=== PATIENT | female | born 1945 | race Caucasian/White ===

== ENCOUNTER → 2018-01-30 | Outpatient (CLI) | payer OTHER ==
[~2018-01-30] MED LIST: AMITRIPTYLINE H25 M2 PO; ASPIRIN325 PO; ASTELIN30 ML NS; CALCIUM OR; CELEXA 20 MG TA20 M1 PO; FISHOIL; FLAX SEED OIL1000 MG PO; FLEXERIL PO; LOTREL 5-10 MG1 EACH PO; LOTREL 5-20 MG1 EACH PO; LUTEIN20 MG OR; MULTIVITAMINS OR; NASONEX17 GM NS; NEURONTIN600 MG PO; NORCO 5-325 TA1 EACH PO; PEPCID AC20 M1 PO; POTASSIUM GLUCONATE OR; POTASSIUM20; REGLAN 10 MG TA10 MG PO; XYZAL5 MG PO; ZOFRAN ODT4 MG PO; [UNRECOGNIZED DRUG - OTHER] PO
== END ==
LOC: RAD 00:13
DX: Z12.31 Encounter for screening mammogram for malignant neoplasm of breast (principal); Z13.820 Encounter for screening for osteoporosis; Z78.0 Asymptomatic menopausal state

== ENCOUNTER → 2018-05-23 | Outpatient (CLI) | payer OTHER | LOC: ULTRA 11:54 | DX: M25.462 Effusion, left knee (principal); M79.89 Other specified soft tissue disorders; I10 Essential (primary) hypertension; M81.0 Age-related osteoporosis without current pathological fracture ==

== ENCOUNTER → 2019-01-21 | Outpatient (CLI) | payer OTHER ==
[~2019-01-21] VITALS: Ht 162.6 cm; Wt 97.5 kg
[~2019-01-21] MED LIST changes: +AMLODIPINE-OLM1 EAC1 PO; +CENTRUM SILVER1 EAC4 PO; +CITRACAL + D E1 EACH PO; +FISH OIL 1,2001 EAC4 PO; +LIPITOR10 MG PO; +OXYBUTYNIN 5 MG5 M2 PO; +PRESERVISION A1 EAC2 PO; +VITAMIN D35000 UNIT PO; +ZYRTEC10 M5 PO
--- NOTE | ~2019-01-21 | P ---
[facility] [place] [address] PROCEDURE REPORT Name: ISA CONTE Room #: REG [facility]#: [id number] Admission: 01/21/19 ������������������ Attend Phys: Edgar Mann Discharge: ������������������ Date of : 43 Report #: [id number] THIS REPORT FOR: //name// CC: Edgar Cox MD DATE OF SERVICE: 01/21/2019 PROCEDURE PERFORMED: Colonoscopy. HISTORY OF PRESENT ILLNESS: The patient is a 73-year-old female who presents today for routine screening colonoscopy. Last colonoscopy was approximately 10 years ago, negative. No family history of colon cancer. The patient denies any symptoms. DESCRIPTION OF PROCEDURE: The risks and benefits of the procedure were explained to the patient, those risks including but not limited to bleeding, perforation, the risk of sedation. She understood these risks and gave informed consent. Sedation was given using propofol per anesthesia. Next, a digital rectal exam was initially performed, which was normal. Next, using a standard Olympus colonoscope, the scope was placed in the patient's anus and advanced under direct vision to the cecum. The overall prep was excellent. The cecum and ileocecal valve were normal in appearance. Ascending, transverse, and descending colon were normal. A few diverticula were noted in the sigmoid colon, no evidence of inflammation, otherwise normal. The rectal mucosa was normal. On retroflexion, no abnormalities were noted. The scope was then withdrawn and the procedure terminated. The patient tolerated the procedure well. IMPRESSION: 1. Sigmoid diverticulosis. 2. Otherwise, normal colonoscopy. RECOMMENDATIONS: Consider repeat colonoscopy in 10 years. Thank you for allowing me to participate in her care. ��������������������������������������������� ���������������������������������������� By: ��������������������������������������������� 1056 2042 Edgar Fall MD /nt
== END | disposition home or self-care (01) ==
LOC: GI 08:45
DX: Z12.11 Encounter for screening for malignant neoplasm of colon (principal); K57.30 Diverticulosis of large intestine without perforation or abscess without bleeding; M79.7 Fibromyalgia; G62.9 Polyneuropathy, unspecified; I10 Essential (primary) hypertension; E78.00 Pure hypercholesterolemia, unspecified; Z90.49 Acquired absence of other specified parts of digestive tract; Z86.73 Personal history of transient ischemic attack (TIA), and cerebral infarction without residual deficits; Z98.890 Other specified postprocedural states; Z79.899 Other long term (current) drug therapy; Z79.82 Long term (current) use of aspirin
CPT/HCPCS: 62110; 62900

== ENCOUNTER → 2019-07-13 | Outpatient (CLI) | payer OTHER | LOC: BC 08:41 | DX: Z12.31 Encounter for screening mammogram for malignant neoplasm of breast (principal) ==

== ENCOUNTER 2019-12-13 10:30 | Emergency (ER) | payer OTHER ==
[~2019-12-13] VITALS: Ht 165.1 cm; Wt 90.7 kg
--- NOTE | ~2019-12-13 | EKG ---
[facility] [place] [address] ELECTROCARDIOGRAM REPORT Name: ISA CONTE Room #: REG [facility]#: [id number] Admission: 12/13/19 Attend Phys: Discharge: Date of : 43 Report #: [id number] THIS REPORT FOR: cc: Tony Cox Steven F. DO Epiphany, Epiphany MD ~ THIS REPORT FOR: //name// [facility] ED Test Date: 2019-12-13 Test Time: 11:47:41 Pat Name: ISA CONTE Department: Room: Gender: F County Supervisor: DANIE : 1945 Requested By: Angelica Monteiro Order Number: [id number] MD: Measurements Intervals [place] Rate: 56 P: 18 [place]: 207 QRS: -36 QRSD: 109 T: 3 QT: 463 QTc: 447 Interpretive Statements Sinus rhythm Left axis deviation Abnormal R-wave progression, late transition Borderline T abnormalities, anterior leads Compared to ECG 01/13/2016 03:23:05 Left-axis deviation now present Sinus bradycardia no longer present T-wave abnormality still present [email or web address] By: 1147 1147 Epiphany Epiphany, [place] /[facility]
[2019-12-13 11:06] LABS: ABSOLUTE NEUTROPHILS 5.2 thou/uL (1.4-8.2); BASOPHILS 0.8 % (0.0-2.0); EOSINOPHILS 0.8 % (0.0-3.0); HEMOGLOBIN 15.3 gm/dL (12.0-15.0); LYMPHOCYTES 19.3 % (24.0-44.0); MCH 28.8 pg (26.0-34.0); MCHC 33.2 g/dL (28.0-37.0); MCV 86.5 fL (80.0-100.0); MONOCYTES 8.5 % (1.0-8.0); PLATELET COUNT 232 thou/uL (150-400); POLYS 70.6 % (36.0-66.0); RBC 5.32 mil/uL (4.20-5.00); RDW 14.4 % (10.5-14.5); WBC 7.3 thou/uL (4.0-11.0)
[2019-12-13 11:12] LABS: CALCIUM 9.2 mg/dL (8.5-10.1); CREATININE 1.1 mg/dL (0.6-1.0); POTASSIUM 3.5 mmol/L (3.5-5.1)
[2019-12-13 11:18] LABS: ALBUMIN 3.7 g/dL (3.4-5.0); TOTAL BILIRUBIN 0.5 mg/dL (<0.1-1.0); TOTAL PROTEIN 8.1 g/dL (6.4-8.2)
[2019-12-13 11:59] LABS: URINE BILIRUBIN NEGATIVE (Negative); URINE BLOOD TRACE (Negative); URINE CLARITY CLEAR; URINE COLOR YELLOW; URINE GLUCOSE-RANDOM* NEGATIVE (Negative); URINE KETONES NEGATIVE (Negative); URINE LEUKOCYTES-REFLEX NEGATIVE (Negative); URINE NITRITE-REFLEX NEGATIVE (Negative); URINE PROTEIN (DIPSTICK) NEGATIVE (Negative); URINE UROBILINOGEN 0.2 E.U./dl (0.2-1.0)
[2019-12-13 12:34] VITALS: BP 109/76
[2019-12-13] MEDS ORDERED: REGLAN 10 MG TA10 MG PO (12:40)
[2019-12-13] MEDS ORDERED: NORCO 5-325 TA1 EAC1 PO (12:40)
== END 2019-12-13 12:43 | disposition home or self-care (01) ==
LOC: ER 10:30
PROVIDERS: Emergency Medicine; Nurse Practitioner Family
DX: R19.7 Diarrhea, unspecified (principal); R11.2 Nausea with vomiting, unspecified; E86.0 Dehydration; I10 Essential (primary) hypertension; E78.00 Pure hypercholesterolemia, unspecified; M79.7 Fibromyalgia; G47.30 Sleep apnea, unspecified; Z90.49 Acquired absence of other specified parts of digestive tract; Z86.73 Personal history of transient ischemic attack (TIA), and cerebral infarction without residual deficits

== ENCOUNTER 2020-09-09 13:10 | Inpatient (IN) | payer OTHER ==
[~2020-09-09] VITALS: Ht 165.1 cm; Wt 93.0 kg
--- NOTE | ~2020-09-09 | EKG ---
[facility] [place] [address] ELECTROCARDIOGRAM REPORT Name: ISA CONTE Room #: 349-I ADM IN M.R.#: [id number] Admission: 09/09/20 Attend Phys: Henry Mackay MD Discharge: Date of : 43 Report #: [id number] THIS REPORT FOR: cc: Tony Cox Steven F. DO Epiphany, Epiphany MD ~ THIS REPORT FOR: //name// [facility] Test Date: 2020-09-10 Test Time: 12:43:06 Pat Name: ISA CONTE Department: Room: 349 Gender: F Mother Repairer: Lisa JUNG : 1945 Requested By: Margie Glynn Order Number: [id number] MD: Measurements Intervals [employer] Rate: 64 P: 13 TN: 212 QRS: -46 QRSD: 100 T: 36 QT: 391 QTc: 404 Interpretive Statements Sinus rhythm Borderline prolonged TN interval LAD, consider left anterior fascicular block Compared to ECG 09/09/2020 13:28:58 Left-axis deviation no longer present [email or web address] By: 1243 1243 Epiphany Epiphany, [place] /[facility]
--- NOTE | ~2020-09-09 | EKG ---
[facility] [place] [address] ELECTROCARDIOGRAM REPORT Name: ISA CONTE Room #: PRE [facility]..#: [id number] Admission: Attend Phys: Discharge: Date of : 43 Report #: [id number] THIS REPORT FOR: cc: Tony Cox Steven F. DO Epiphany, Epiphany MD ~ THIS REPORT FOR: //name// [facility] ED Test Date: 2020-09-09 Test Time: 13:28:58 Pat Name: ISA COTNE Department: Room: Gender: F Window Shade Cutter: RAFAEL TOLBERT : 1945 Requested By: Amaury Hernandez Order Number: [id number] MD: Measurements Intervals [place] Rate: 70 P: -11 [place]: 207 QRS: -41 QRSD: 99 T: 22 QT: 387 QTc: 418 Interpretive Statements Sinus rhythm Left axis deviation Abnormal R-wave progression, late transition Compared to ECG 12/13/2019 11:47:41 T-wave abnormality no longer present [email or web address] By: 1328 1328 Epiphany EpiphanyMD /EPI
[~2020-09-09 13:10] MED LIST changes: +NORCO 5-325 TA1 EAC1 PO
[2020-09-09 13:13] VITALS: BP 145/90
[2020-09-09 14:20] LABS: ABSOLUTE NEUTROPHILS 4.4 thou/uL (1.4-8.2); BASOPHILS 0.9 % (0.0-2.0); EOSINOPHILS 5.9 % (0.0-3.0); HEMATOCRIT 40.8 % (37.0-47.0); LYMPHOCYTES 24.1 % (24.0-44.0); MCH 29.5 pg (26.0-34.0); MCHC 34.2 g/dL (28.0-37.0); MCV 86.2 fL (80.0-100.0); MONOCYTES 7.5 % (1.0-8.0); PLATELET COUNT 205 thou/uL (150-400); POLYS 61.6 % (36.0-66.0); RBC 4.73 mil/uL (4.20-5.00); RDW 14.1 % (10.5-14.5); WBC 7.1 thou/uL (4.0-11.0)
[2020-09-09 14:23] LABS: ANION GAP 10 mmol/L (7-16); BUN 16 mg/dL (7-18); CALCIUM 8.9 mg/dL (8.5-10.1); CHLORIDE 103 mmol/L (98-107); CO2 28 mmol/L (21-32); CREATININE 0.9 mg/dL (0.6-1.0); GLUCOSE 98 mg/dL (74-106); POTASSIUM 3.6 mmol/L (3.5-5.1); SODIUM 141 mmol/L (136-145)
[2020-09-09 14:33] LABS: ALBUMIN 3.7 g/dL (3.4-5.0); SGOT 17 U/L (15-37); SGPT 15 U/L (30-65); TOTAL BILIRUBIN 0.3 mg/dL (0.2-1.0); TOTAL PROTEIN 7.4 g/dL (6.4-8.2); TROPONIN-I <0.06 ng/mL (<0.06)
--- NOTE | 2020-09-09 14:44 | EKG ---
[facility] [place] [address] ELECTROCARDIOGRAM REPORT Name: ISA CONTE Room #: REG [facility].#: [id number] Admission: 09/09/20 Attend Phys: Discharge: Date of : 43 Report #: [id number] THIS REPORT FOR: cc: Tony Cox Steven F. DO Santiago, Patrick MD [facility] ~ THIS REPORT FOR: //name// [facility] ED Test Date: 2020-09-09 Test Time: 13:28:58 Pat Name: ISA CONTE Department: Room: Gender: F Health Social Work Professor: RAFAEL TOLBERT : 1945 Requested By: Amaury Hernandez Order Number: [id number] MD: Juve Hernandez Measurements Intervals [place] Rate: 70 P: -11 RI: 207 QRS: -41 QRSD: 99 T: 22 QT: 387 QTc: 418 Interpretive Statements Sinus rhythm Left axis deviation Abnormal R-wave progression, late transition Compared to ECG 12/13/2019 11:47:41 T-wave abnormality no longer present Electronically Signed On 09-09-2020 14:43:50 MANAGED SERVICES SALES CONSULTANT by Juve Hernandez [email or web address] <ELECTRONICALLY SIGNED> By: Juve Hernandez MD, FACC 09/09/20 1443 1328 1328 Juve Hernandez MD, [facility] /EPI
[2020-09-09 22:32] LABS: CHOLESTEROL 143 mg/dL (<200); HDL CHOLESTEROL 57 mg/dL (>40); LDL CHOLESTEROL 74 mg/dL (<100); TC:HDL 2.5 Ratio (Not establshd); TRIGLYCERIDE 64 mg/dL (<150); VLDL 13 mg/dL (<40)
[2020-09-09 22:33] LABS: SERUM ASSESSMENT Clear
[2020-09-10 05:48] LABS: CALCIUM 8.3 mg/dL (8.5-10.1); CREATININE 0.7 mg/dL (0.6-1.0); POTASSIUM 3.3 mmol/L (3.5-5.1)
[2020-09-10 07:34] VITALS: BP 154/85
[2020-09-10 09:35] VITALS: BP 140/61
[2020-09-10 11:23] VITALS: BP 120/55
--- NOTE | 2020-09-10 12:12 | NUR ---
ASSUMED PATIENT CARE. PATIENT ARRIVED TO UNIT AT APPROXIMATELY 1130 FROM ER. ARRIVED TO FLOOR VIA HOPSITAL BED. AWAKE ALERT ORIENTED, NO DISTRESS NOTED UPON ARRIVAL TO FLOOR. PATIENT EDUCATED ON USE OF CALL LIGHT AND ORIENTED TO ROOM. SPOKE WITH DR. MCCRACKEN UPON ARIVAL TO FLOOR. DIET ORDERED
[2020-09-10 15:07] VITALS: BP 133/69
[2020-09-10 19:53] VITALS: BP 136/65
[2020-09-11 00:07] VITALS: BP 136/74
[2020-09-11 05:49] LABS: HEMATOCRIT 41.8 % (37.0-47.0); HEMOGLOBIN 13.7 gm/dL (12.0-15.0); MCH 28.9 pg (26.0-34.0); MCHC 32.7 g/dL (28.0-37.0); MCV 88.3 fL (80.0-100.0); RBC 4.73 mil/uL (4.20-5.00); RDW 14.3 % (10.5-14.5); WBC 4.7 thou/uL (4.0-11.0)
[2020-09-11 06:09] VITALS: BP 134/62
[2020-09-11 06:15] LABS: CALCIUM 8.4 mg/dL (8.5-10.1); POTASSIUM 3.3 mmol/L (3.5-5.1)
--- NOTE | 2020-09-11 06:17 | NUR ---
ASSUMED CARE AT 1900. PT REPORTS MILD PAIN IN SHOULDERS/UPPER ARMS BUT DECLINED NEEDING PAIN MEDS. DENIED CHEST PAIN OR SOB OVERNIGHT. SR WITH OCCASIONAL PAC, HR 70-80 OVERNIGHT. NO OTHER CONCERNS, WILL CONTINUE TO MONTIOR.
[2020-09-11 07:07] LABS: GLYCOHEMOGLOBIN (HGB A1C) 5.5 % (4.8-5.6)
--- NOTE | 2020-09-11 07:45 | HC ---
[facility] [place] [address] CONSULTATION Name: ISA CONTE Room #: 349-I ADM IN M.R.#: [id number] Admission: 09/09/20 Attend Phys: Henry Mackay MD Discharge: Date of : 43 Report #: [id number] THIS REPORT FOR: cc: Tony Cox,Nayan De La Cruz MD ~ DATE OF SERVICE: 09/10/2020 CARDIOLOGY CONSULTATION INDICATION: Chest pain. HISTORY OF PRESENT ILLNESS: This is a pleasant 74-year-old female with a history of hypertension, hypercholesterolemia, fibromyalgia, peripheral neuropathy and TIA, presenting with chest pain. She initially presented with complaints of intermittent fatigue and upper torso discomfort. She was experiencing aches in her arms, upper back and neck area. Her granddaughter was tested positive for COVID last week and she was concerned. Upon further questioning, she also reported having a discomfort in the left sternal area, reproducible with palpation. It was not relieved with belching, upper torso movement or coughing. There is no history of fever, nausea or diarrhea. Her COVID test is positive. PAST MEDICAL HISTORY: Hypertension, hyperlipidemia, negative for diabetes, negative for tobacco use. ALLERGIES: None. MEDICATIONS AT HOME: Include amlodipine and olmesartan, Neurontin, amitriptyline, atorvastatin 10 mg daily, fish oil. SOCIAL HISTORY: Negative for tobacco use. FAMILY HISTORY: Negative for premature CAD. REVIEW OF SYSTEMS: A full 10-point review of systems performed. Only the pertinent positives and negatives are described in the HPI. PHYSICAL EXAMINATION: VITAL SIGNS: Blood pressure is 150/80, heart rate is 70 beats per minute. GENERAL APPEARANCE: This is a pleasant female, in no apparent distress. HEENT: Normocephalic, atraumatic. Oral mucosa moist. NECK: Supple. LUNGS: Clear to auscultation. [facility] [address] [place] [address] CONSULTATION Name: ISA CONTE Room #: 349-I [facility] IN [facility]#: [id number] Admission: 09/09/20 Attend Phys: Henry Mackay MD Discharge: Date of : 43 Report #: [id number] CARDIAC: Regular rate and rhythm, S1, S2 positive. ABDOMEN: Soft, nontender. EXTREMITIES: No edema, no cyanosis. LABORATORY VALUES: Troponin is negative x 2. Sodium is 143, creatinine is 0.7. LDL is 74, hemoglobin is 14.0 ECG reveals sinus rhythm, nonspecific findings. Chest x-ray is unremarkable. ASSESSMENT AND PLAN: 1. Chest pain syndrome/atypical. 2. Serial troponin levels are negative. Her symptoms are reproducible with palpation. The etiology is more likely musculoskeletal. Recommend pursuing an ischemic evaluation as an outpatient. 3. COVID-19 infection. 4. Respiratory status is stable. Chest x-ray is unremarkable. Continue further treatment. 5. Hypertension, stable blood pressure, continue on the same medical regimen. 6. Hypercholesterolemia, continue Lipitor. <ELECTRONICALLY SIGNED> By: Nayan Sullivan MD 09/11/20 0745 0832 0854 Nayan Sullivan MD /nt
[2020-09-11 08:21] VITALS: BP 127/77
[2020-09-11 11:20] VITALS: BP 111/73
--- NOTE | 2020-09-11 14:36 | NUR ---
ASSUMED PATIENT CARE THIS AM AT APPROXIMATELY 0700. PATIENT IS AWAKE ALERT ORIENTED, NO ACUTE DISTRESS NOTED. ASSESSMENTS AND MEDICATIONS CHARTED. PATIENT DENIES ANY ACUTE CHEST PAIN THIS SHIFT. ONLY SORENESS TO BILATERAL SHOULDERS, DENIES ANY NEED FOR PAIN MEDICATIONS AT THIS TIME. PATIENT POTASSIUM LEVEL LOW THIS AM AND REPLACEMENT PROTOCOL STARTED. PATIENT DISCUSSED PLAN OF CARE DISCUSSED WITH MD AND ALL QUESTIONS ANSWERED THIS SHIFT. PT AFEBRILE, O2 SAT STABLE ON ROOM AIR AND NO SOB NOTED WITH EXERTION.
[2020-09-11 15:01] VITALS: BP 120/62
[2020-09-11 20:19] VITALS: BP 122/58
[2020-09-12 04:21] VITALS: BP 109/57
[2020-09-12 05:11] LABS: HEMOGLOBIN 13.8 gm/dL (12.0-15.0); MCH 29.5 pg (26.0-34.0); MCHC 33.6 g/dL (28.0-37.0); MCV 87.8 fL (80.0-100.0); RBC 4.67 mil/uL (4.20-5.00); RDW 14.5 % (10.5-14.5); WBC 4.8 thou/uL (4.0-11.0)
[2020-09-12 05:26] LABS: CALCIUM 8.1 mg/dL (8.5-10.1); CREATININE 0.9 mg/dL (0.6-1.0); POTASSIUM 3.8 mmol/L (3.5-5.1)
--- NOTE | 2020-09-12 06:21 | NUR ---
ASSUMED CARE AT 1900. PT DENIED CHEST PAIN OR SOB OVERNIGHT. NO FEVERS. HAS BEEN SR ON TELE WITH HR IN 70'S. OCCASIONAL DRY COUGH, NO SPUTUM. LIKELY DC HOME TODAY, NO OTHER CONCERNS, WILL CONTINUE TO MONITOR.
[2020-09-12 08:21] VITALS: BP 117/76
[2020-09-12] MEDS ORDERED: VITAMINC500 PO (09:50)
[2020-09-12] MEDS ORDERED: VITAMIN B-1100 M2 PO (09:50)
[2020-09-12 10:38] VITALS: BP 117/76
--- NOTE | 2020-09-12 10:42 | NUR ---
ASSUMED PATIENT CARE THIS AM AT APPROXMIATELY 0700. PATIENT IS AWAKE ALERT ORIENTED, UP IN BEDSIDE CHAIR. NO COMPLAINTS THIS AM, STATES SHE SLEPT WELL OVERNIGHT, PATIENT DENIES ANY CHEST PAIN OR OTHER CONCERNS THIS AM. PATIENT VSS. MEDICATIONS AND ASSESSMENTS CHARTED. SPOKE WITH DR. MCCRACKEN THIS AM AND DISCHARGE ORDERS GIVEN. PATIENT EDUCATED ON DISCHAGE INSTRUCTIONS AND FOLLOW UP APPOINTMENTS WELL NEW MEDICATIONS ORDERED. PATIENT DENIES ANY FURTHE QUESTIONS AT THIS TIME. COOKER SYRUP AND IV SALINE LOCK REMOVED.
--- NOTE | 2020-09-14 15:03 | HC ---
[facility] [place] [address] CONSULTATION Name: ISA CONTE Room #: 349-I [facility] IN M.R.#: [id number] Admission: 09/09/20 Attend Phys: Yusuf Earl MD Discharge: 09/12/20 Date of : 43 Report #: [id number] THIS REPORT FOR: cc: Tony Cox,Ruddy Vera MD ~ DATE OF SERVICE: 09/10/2020 INFECTIOUS DISEASE CONSULTATION ATTENDING PHYSICIAN: Dr. Mackay. REASON FOR EVALUATION: COVID-19 positive. HISTORY OF PRESENT ILLNESS: Chart reviewed, the patient examined. This is a 74-year-old woman with very extensive medical history, with complaints of chest-related discomfort, also extended to her upper extremities as well, felt a pressure type. She was concerned about the possibility of being COVID positive since she was exposed to her granddaughter who tested positive a later. She was fatigued. It is not clear if she had any significant fevers. She did have some mild dyspnea and a nonproductive cough. She was evaluated. Laboratory was otherwise unrevealing. D-dimer was slightly elevated at 1.33. CT of the chest showed no evidence of pulmonary emboli with no focal pulmonary infiltrates, some mild bibasilar atelectasis. COVID antigen was negative with coronavirus PCR was positive. She is currently on ambient air satting in the upper 90s. She feels improved from the chest standpoint. She has not been started on any antimicrobials. ALLERGIES: None known. CURRENT MEDICATIONS: Include ascorbic acid, olmesartan, amlodipine, cholecalciferol, loratadine, aspirin, gabapentin, oxybutynin, amitriptyline, famotidine, atorvastatin, p.r.n. analgesics and antiemetics. PAST MEDICAL HISTORY: History of sleep apnea, bilateral lower extremity peripheral neuropathy, fibromyalgia, elevated cholesterol, hypertension, macular degeneration, previous cholecystectomy. SOCIAL HISTORY: Nonsmoker, no ethanol, no illicit drug use. FAMILY HISTORY: Noncontributory. REVIEW OF SYSTEMS: As above. [facility] [address] [place] [address] CONSULTATION Name: ISA CNOTE Room #: 349-I [facility] IN [facility]#: [id number] Admission: 09/09/20 Attend Phys: Yusuf Earl MD Discharge: 09/12/20 Date of : 43 Report #: [id number] PHYSICAL EXAMINATION: GENERAL: She is pleasant, alert, cooperative. She is mildly anxious, appears to be reasonably well nourished. VITAL SIGNS: Temperature 98.5, pulse 67, respirations 20, blood pressure 111/73. SKIN: Warm, dry, no rashes. HEENT: Normocephalic. Extraocular muscles intact. NECK: Supple. LUNGS: Slightly diminished, otherwise clear breath sounds. HEART: Regular. I do not appreciate a murmur. ABDOMEN: Soft, nontender, nondistended. EXTREMITIES: No cyanosis. GENITOURINARY AND RECTAL: Deferred. LABORATORY DATA: Hemoglobin A1c was 5.5. Electrolytes: Sodium 139, potassium 3.3, chloride 103, bicarbonate 26, anion gap of 10, BUN and creatinine 16 and 1.0, estimated GFR of 54. CBC: White count 4.7, H and H 13.7 and 41.8, platelets of 172. As noted above, the coronavirus PCR was positive and antigen was negative. ASSESSMENT: Coronavirus, COVID-19 positive. At this point, I do not think she is exhibiting anything that would favor active signs of progressive infection at this point, certainly monitor over the next 24-48 hours to see how she does. Clinically, she has improved. We would not initiate any therapy such as remdesivir nor any antibacterials unless there is a change in her overall status with suggestion of progressive disease. <ELECTRONICALLY SIGNED> By: Ruddy Domingo MD 09/14/20 1503 1130 1216 Ruddy Domingo MD /nt
== END 2020-09-12 13:20 | disposition home or self-care (01) | DRG 178 ==
LOC: ER 13:10 → 3W 18:10 → EROBS 18:10 → 3W 09-10 11:30
PROVIDERS: Emergency Medicine; Nurse Practitioner Family; ADMIT Hospitalist; ATTEND Hospitalist
DX: U07.1 COVID-19 (principal); D68.9 Coagulation defect, unspecified; M79.7 Fibromyalgia; E78.00 Pure hypercholesterolemia, unspecified; I10 Essential (primary) hypertension; G62.9 Polyneuropathy, unspecified; G47.33 Obstructive sleep apnea (adult) (pediatric); R07.9 Chest pain, unspecified; Z90.49 Acquired absence of other specified parts of digestive tract; Z86.73 Personal history of transient ischemic attack (TIA), and cerebral infarction without residual deficits; Z79.82 Long term (current) use of aspirin; Z79.899 Other long term (current) drug therapy; M94.0 Chondrocostal junction syndrome [Tietze]
CPT/HCPCS: 10879

== ENCOUNTER → 2020-10-04 | Outpatient (CLI) | payer OTHER ==
[~2020-10-04] MED LIST changes: +VITAMIN B-1100 M2 PO; +VITAMINC500 PO
== END ==
LOC: SJCVCIMAG 09:38
PROVIDERS: ATTEND Internal Medicine Cardiovascular Disease
DX: R94.31 Abnormal electrocardiogram [ECG] [EKG] (principal); I10 Essential (primary) hypertension; E78.00 Pure hypercholesterolemia, unspecified; G47.33 Obstructive sleep apnea (adult) (pediatric); Z79.82 Long term (current) use of aspirin; Z79.899 Other long term (current) drug therapy

== ENCOUNTER → 2020-10-10 | Outpatient (CLI) | payer OTHER | LOC: CAT 11:45 | PROVIDERS: ATTEND Neuromusculoskeletal Medicine & OMM | DX: Z13.6 Encounter for screening for cardiovascular disorders (principal); I25.10 Atherosclerotic heart disease of native coronary artery without angina pectoris; E78.00 Pure hypercholesterolemia, unspecified ==

== ENCOUNTER → 2021-04-11 | Outpatient (CLI) | payer OTHER | LOC: SJCVC 10:42 | PROVIDERS: ATTEND Internal Medicine Cardiovascular Disease | DX: R94.31 Abnormal electrocardiogram [ECG] [EKG] (principal); R07.9 Chest pain, unspecified; R06.00 Dyspnea, unspecified; I10 Essential (primary) hypertension; E78.00 Pure hypercholesterolemia, unspecified; Z86.16 Personal history of COVID-19; G47.30 Sleep apnea, unspecified; E78.5 Hyperlipidemia, unspecified; Z79.82 Long term (current) use of aspirin; Z79.899 Other long term (current) drug therapy; Z86.73 Personal history of transient ischemic attack (TIA), and cerebral infarction without residual deficits ==

== ENCOUNTER → 2021-05-03 | Outpatient (CLI) | payer OTHER | LOC: MRI 10:26 | PROVIDERS: ATTEND Neuromusculoskeletal Medicine & OMM | DX: M47.815 Spondylosis without myelopathy or radiculopathy, thoracolumbar region (principal); M47.816 Spondylosis without myelopathy or radiculopathy, lumbar region; M48.061 Spinal stenosis, lumbar region without neurogenic claudication; M51.27 Other intervertebral disc displacement, lumbosacral region; M48.07 Spinal stenosis, lumbosacral region; M41.86 Other forms of scoliosis, lumbar region ==

== ENCOUNTER → 2021-06-19 | Outpatient (CLI) | payer OTHER ==
[2021-06-19 11:00] LABS: CREATININE 0.8 mg/dL (0.6-1.0)
== END ==
LOC: CAT 10:20
PROVIDERS: ATTEND Specialist
DX: M47.26 Other spondylosis with radiculopathy, lumbar region (principal); M47.27 Other spondylosis with radiculopathy, lumbosacral region; M48.07 Spinal stenosis, lumbosacral region; M48.061 Spinal stenosis, lumbar region without neurogenic claudication; M41.86 Other forms of scoliosis, lumbar region; E88.2 Lipomatosis, not elsewhere classified

== ENCOUNTER 2021-07-02 18:20 | Observation (INO) | payer OTHER ==
[~2021-07-02] VITALS: Ht 165.1 cm; Wt 94.3 kg
[2021-07-02 18:39] VITALS: BP 148/77
[2021-07-02 19:02] LABS: HEMATOCRIT 40.1 % (37.0-47.0); HEMOGLOBIN 13.5 gm/dL (12.0-15.0); LYMPHOCYTES 28.6 % (24.0-44.0); MCH 29.5 pg (26.0-34.0); MCHC 33.8 g/dL (28.0-37.0); MCV 87.3 fL (80.0-100.0); PLATELET COUNT 192 thou/uL (150-400); POLYS 50.4 % (36.0-66.0); RBC 4.59 mil/uL (4.20-5.00); RDW 14.6 % (10.5-14.5); WBC 7.9 thou/uL (4.0-11.0)
[2021-07-02 19:20] LABS: CREATININE 0.9 mg/dL (0.6-1.0); POTASSIUM 3.7 mmol/L (3.5-5.1)
[2021-07-02 19:30] LABS: ALBUMIN 3.5 g/dL (3.4-5.0); TOTAL BILIRUBIN 0.3 mg/dL (0.2-1.0); TOTAL PROTEIN 7.1 g/dL (6.4-8.2)
[2021-07-03 00:06] VITALS: BP 140/69
[2021-07-03] MEDS ORDERED: OXYBUTYNIN ER 55 M1 PO (01:18)
[2021-07-03 04:26] VITALS: BP 110/48
[2021-07-03 05:16] LABS: CALCIUM 8.2 mg/dL (8.5-10.1); CREATININE 0.8 mg/dL (0.6-1.0)
[2021-07-03 05:27] LABS: CHOLESTEROL 138 mg/dL (<200); HDL CHOLESTEROL 47 mg/dL (>40); LDL CHOLESTEROL 67 mg/dL (<100); TC:HDL 2.9 Ratio (Not establshd); TRIGLYCERIDE 120 mg/dL (<150); VLDL 24 mg/dL (<40)
[2021-07-03 05:28] LABS: SERUM ASSESSMENT Clear
[2021-07-03 07:00] VITALS: BP 136/78
--- NOTE | 2021-07-03 07:16 | EKG ---
[address] [address] ELECTROCARDIOGRAM REPORT Name: ISA CONTE Room #: 200-I [facility].R.#: [id number] Admission: 07/02/21 Attend Phys: Jethro Sahu MD Discharge: Date of : 43 Report #: [id number] [facility] ED Test Date: 2021-07-02 Test Time: 21:06:08 Pat Name: ISA CONTE Department: Room: 200 Gender: F Mechanic Senior: mparrobb : 1945 Requested By: Elyssa Aldana Order Number: [id number] MD: Juve Hernandez Measurements Intervals [place] Rate: 67 P: 17 UT: 214 QRS: -43 QRSD: 101 T: 29 QT: 412 QTc: 435 Interpretive Statements Sinus rhythm Borderline prolonged UT interval Incomplete RBBB Compared to ECG 09/10/2020 12:43:06 Incomplete right bundle-branch block now present Right bundle-branch block now present Electronically Signed On 07-03-2021 7:16:39 CDT by Juve Hernandez [email or web address] <ELECTRONICALLY SIGNED> By: Juve Hernandez MD, [facility] 07/03/21 0716 05 05 Juve Hernandez MD, [facility] /EPI
--- NOTE | 2021-07-03 08:43 | EKG ---
[place] [address] [facility] [place] [address] ELECTROCARDIOGRAM REPORT Name: ISA CONTE Room #: 200-I [facility].#: [id number] Admission: 07/02/21 Attend Phys: Asher Nixon Discharge: Date of : 43 Report #: [id number] [facility] Test Date: 2021-07-03 Test Time: 07:30:09 Pat Name: ISA CONTE Department: Room: 200 I Gender: F Compliance Spec: CARLOS : 1945 Requested By: Margie Glynn Order Number: [id number] MD: Js Metcalf Measurements Intervals [place] Rate: 62 P: 9 DC: 224 QRS: -44 QRSD: 101 T: 18 QT: 429 QTc: 436 Interpretive Statements Sinus rhythm Prolonged DC interval Left axis deviation Compared to ECG 07/02/2021 21:06:08 No significant change was found Electronically Signed On 07-03-2021 8:43:34 CDT by Js Metcalf [email or web address] <ELECTRONICALLY SIGNED> By: Js Metcalf MD, [facility] 07/03/2143 9 9 Js Metcalf MD, [facility]ACC /EPI
[2021-07-03 11:36] VITALS: BP 123/65
--- NOTE | 2021-07-03 12:07 | NUR ---
ASSESSMENT CHARTED - FADIA DIET AND FLUIDS. UP AD ELLEN IN REOOM STEADY ON FEET. NO CO'S OF PAIN OR NAUSEA. PT HOME THIS AM - INSTRUCTION RE HOME MEDS/ FOLLOW AND CARE GIVEN TO PATIENT TO HAVE STRESS STESS DONE OUTPATIENT. LEFT UNIT VIA WHEELCHAIR. HOME VIA PVT VEHICLE WITH . NO CO'S AT TIME OF D/C.
--- NOTE | 2021-07-03 12:59 | NUR ---
Met with patient who is discharged today with orders completed. SP with patient reviewed role of casemgt. Patient reports she lives at home with spouse and son. She reports independent with adls and self care. She has not rec HH or had prior to admission. patient plans home with no needs from casemgt. plan dc home independently.
--- NOTE | 2021-07-04 07:22 | EKG ---
[address] [place] [address] ELECTROCARDIOGRAM REPORT Name: ELAISA RODRIGUES Room #: 200-I [facility]#: [id number] Admission: 07/02/21 Attend Phys: Asher Nixon Discharge: 07/03/21 Date of : 43 Report #: [id number] [facility] ED Test Date: 2021-07-02 Test Time: 18:26:55 Pat Name: ISA CONTE Department: Room: 200 I Gender: F Program Director: THOR : 1945 Requested By: Elyssa Aldana Order Number: [id number] MD: Juve Hernandez Measurements Intervals [place] Rate: 70 P: 2 SC: 199 QRS: -37 QRSD: 96 T: 5 QT: 398 QTc: 430 Interpretive Statements Sinus rhythm Left axis deviation Abnormal R-wave progression, late transition Borderline T wave abnormalities Compared to ECG 09/10/2020 12:43:06 Left-axis deviation now present T-wave abnormality now present Electronically Signed On 07-04-2021 7:22:37 CDT by Juve Hernandez [email or web address] <ELECTRONICALLY SIGNED> By: Juve Hernandez MD, FAC 07/04/21 0722 182 25 Juve Hernandez MD, [facility] /EPI
== END 2021-07-03 12:05 | disposition home or self-care (01) ==
LOC: ER 18:20 → EROBS 21:18 → 2N 21:18 → EROBS 21:18 → 2N 23:59
PROVIDERS: Nurse Practitioner Family; Physician Assistant; ADMIT Hospitalist; ATTEND Hospitalist
DX: R07.2 Precordial pain (principal); Z20.822 Contact with and (suspected) exposure to COVID-19; I10 Essential (primary) hypertension; I25.2 Old myocardial infarction; G47.33 Obstructive sleep apnea (adult) (pediatric); R42 Dizziness and giddiness; M79.7 Fibromyalgia; E78.5 Hyperlipidemia, unspecified; G62.9 Polyneuropathy, unspecified; Z86.73 Personal history of transient ischemic attack (TIA), and cerebral infarction without residual deficits; Z82.49 Family history of ischemic heart disease and other diseases of the circulatory system

== ENCOUNTER → 2021-07-06 | Outpatient (CLI) | payer OTHER ==
[~2021-07-06] MED LIST changes: +OXYBUTYNIN ER 55 M1 PO
[2021-07-06 10:22] LABS: APTT 31.8 Seconds (24.5-32.8); PROTIME 10.9 Seconds (10.5-12.1)
== END | disposition home or self-care (01) ==
LOC: RAD 08:22
PROVIDERS: ATTEND Specialist
DX: M51.16 Intervertebral disc disorders with radiculopathy, lumbar region (principal); M48.061 Spinal stenosis, lumbar region without neurogenic claudication; M41.86 Other forms of scoliosis, lumbar region; I10 Essential (primary) hypertension; E78.5 Hyperlipidemia, unspecified; M79.7 Fibromyalgia; G62.9 Polyneuropathy, unspecified; Z98.890 Other specified postprocedural states; Z79.899 Other long term (current) drug therapy; Z79.82 Long term (current) use of aspirin; Z86.73 Personal history of transient ischemic attack (TIA), and cerebral infarction without residual deficits; Z86.16 Personal history of COVID-19

== ENCOUNTER → 2021-07-13 | Outpatient (CLI) | payer OTHER | LOC: SJCVCIMAG 07:14 | PROVIDERS: ATTEND Internal Medicine Cardiovascular Disease | DX: R07.9 Chest pain, unspecified (principal); I10 Essential (primary) hypertension; R60.9 Edema, unspecified; E78.5 Hyperlipidemia, unspecified; Z72.89 Other problems related to lifestyle; Z79.82 Long term (current) use of aspirin; Z79.899 Other long term (current) drug therapy ==

== ENCOUNTER → 2021-07-13 | Outpatient (CLI) | payer OTHER | LOC: BC 08:29 | PROVIDERS: ATTEND Neuromusculoskeletal Medicine & OMM | DX: Z12.31 Encounter for screening mammogram for malignant neoplasm of breast (principal) ==

== ENCOUNTER → 2021-08-29 | Outpatient (CLI) | payer OTHER ==
[~2021-08-29] VITALS: Ht 162.6 cm; Wt 90.7 kg
[~2021-08-29] MED LIST changes: +ALEVE220 M1 PO; +BIOTIN5 M1 PO; +LOTREL 10-20 M1 EACH PO; +ZINC50 M2 PO
--- NOTE | ~2021-08-29 | HPC ---
[facility] [place] [address] PAIN MANAGEMENT CONSULTATION Name: ISA CONTE Room #: REG MISTY Lopez.#: [id number] Admission: 08/29/21 Attend Phys: Sen Bond DO Discharge: Date of : 43 Report #: [id number] THIS REPORT FOR: cc: Tony Cox,Tony Gallardo,Sen Flores DO ~ cc: Tony Florian MD DATE OF SERVICE: 08/29/2021 CHIEF COMPLAINT: Low back pain, bilateral lower extremity pain with paresthesias, left greater than right. HISTORY OF PRESENT ILLNESS: As you know, the patient is a very pleasant 75-year-old female who has had a longstanding history of intermittent axial back pain began years ago. She had an acute exacerbation in 04/2020 without inciting injury or trauma. The pain began to radiate from the back down the legs, left greater than right. She trialled conservative treatment including [id number] medications, rest, and relaxation without much benefit. She discussed her case further with her primary care physician, Dr. Cox who referred the patient on to see Dr. Darnell Caceres with the Center for relief of pain. The patient underwent CT myelogram and a flexion, extension films, which showed changes that might require surgical options, but the patient was advised to trial conservative treatment initially. She had not undergone epidural injections or pain management treatments prior to that. She was referred to our clinic to discuss treatment options from an interventional standpoint. The patient reports today her pain is intermittent. Described the pain is more of a shooting, sharp, stabbing, numbness and tingling when describing symptoms. Places current pain score 4/10. Daily average anywhere from 9-12/10. Worst pain has been is 12/10. She has been referred to our service to discuss interventional treatment options to address lumbar radiculopathy. PAST MEDICAL HISTORY: 1. Hypertension. 2. Cholesterolemia. 3. Neuropathy. 4. Fibromyalgia. 5. Sleep apnea. 6. Seasonal allergies. SOCIAL HISTORY: The patient is retired, retired 10 years plus. She is not receiving workmen's compensation nor is she trying to obtain disability benefits. She is not in litigation in regards to pain. She denies tobacco, alcohol or IV illicit drug use. She is accompanied by her present in room today. [address] [address] PAIN MANAGEMENT CONSULTATION Name: ISA CONTE Room #: REG CLI Renetta#: [id number] Admission: 08/29/21 Attend Phys: Sen Bond DO Discharge: Date of : 43 Report #: [id number] PAST SURGICAL HISTORY: Tonsillectomy, ankle surgery and cholecystectomy. REVIEW OF SYSTEMS: Positive for fatigue and weakness, wearing corrective eyewear, shortness of breath with walking, lying flat, nocturia, numbness and tingling sensations, history of transient ischemic attacks with no residual deficits, heat and cold intolerance, bleeding and bruising tendencies. All other review of systems negative per 12-point review of systems other than those listed in history of present illness. Pain impact score 43/70, severe interference of daily activities secondary to pain. ALLERGIES: No reported drug allergies. CURRENT MEDICATIONS: Zinc chelate 50 mg once a day, biotin 5 mg orally, naproxen 220 mg q. 12 hours, amlodipine/benazepril 10/20 once a day, oxybutynin 5 mg once a day, ascorbic acid 500 mg once a day, vitamin B1 100 mg per day, cholecalciferol 5000 units per day, calcium carbonate 1 tab per day, cetirizine 10 mg per day, omega-3 fish oil 1200 mg once a day, atorvastatin 10 mg per day, amitriptyline 25 mg p.o. at bedtime, aspirin 325 mg per day, gabapentin 600 mg 2 tabs 3 times a day, 1200 mg 3 times a day. IMAGING: CT lumbar spine obtained 07/06/2021 shows disk bulge at L2-L3, L3-L4, L4-L5 with thickening and attenuation of the exiting L5 nerve roots bilaterally at the L4-L5 level. PQRS: The patient has known arthritic changes of the lumbar spine, bilateral hands, and bilateral knees and hips. No rheumatoid arthritis, placing pain intensity anywhere from 4-10/10. She is not a fall risk, has not had a fall in last 3 months. She is not on blood thinners, but is treated for hypertension. She is not on chronic opioids, has a low opioid addiction potential based on assessment tool. Pain impact is 43/70, severe interference of daily activities secondary to pain. PHYSICAL EXAMINATION: VITAL SIGNS: Blood pressure 137/69, pulse is 73, respiratory rate 18 and unlabored. The patient is 96% on room air. Height 5 feet 4 inches tall, weight 200 pounds, BMI calculated 34.3. GENERAL: Well-developed, well-nourished, well-hydrated exogenously obese 75-year-old female appearing stated age. She is placing current pain score 4-10/10. HEENT: Normocephalic, atraumatic. Pupils equal, round and responsive to light. She is wearing a mask in compliance with COVID-19 regulations. LUNGS: Clear, no wheeze, rhonchi or rales. CARDIOVASCULAR: Regular. No appreciable gallop, no rub. [facility] [address] [place] [address] PAIN MANAGEMENT CONSULTATION Name: ISA CONTE Room #: REG MISTY Christianson.#: [id number] Admission: 08/29/21 Attend Phys: Sen Bond DO Discharge: Date of : 43 Report #: [id number] ABDOMEN: Soft, obese, normoactive bowel sounds. EXTREMITIES: Show no clubbing, no cyanosis and no edema. MUSCULOSKELETAL: Lower extremity strength is symmetrical 5/5 except for some hand upward bound director on the right, which appears to be reduced to about 4-1/2 over 5. No focal deficits. No atrophy in the upper extremities or lower extremities. Seated straight leg raising is negative. Supine straight leg raising is positive on the right. Maddy's test is negative. Modified Gaenslen's positive for axial low back pain. Gait appears normal. Deep tendon reflexes are 2+/4 in the bilateral upper extremities, 0/4 bilateral lower extremities, but symmetrical. Provocation testing of the lumbar spine including extension, rotation, lateral flexion all intensify axial back pain. ASSESSMENT: 1. Symptomatic lumbar radiculopathy. 2. Displacement of lumbar intervertebral disk with radiculopathy. 3. Neural foraminal stenosis of lumbar spine. 4. Lumbar degeneration. 5. Chronic intractable pain. PLAN: 1. Based on today's physical exam and the history, the patient provides, the distribution of symptoms, the patient is experiencing pain upon and the descriptors the patient uses in regards to pain, it would appear the patient is suffering from lumbar radiculopathy. The patient was referred specifically to our services by her neurosurgeon, Dr. Darnell Caceres to trial lumbar epidural injections under fluoroscopic guidance in hopes of improving pain before surgical options would be entertained. The patient has not trialed any conservative treatment options from a pain management standpoint including epidural injections for which the patient was referred to our clinic. She is on gabapentin taking 1200 mg 3 times a day, but is noticing no significant benefit. She has been evaluated from a surgical standpoint and advised that she is a surgical candidate assuming that conservative treatment options are ineffective. The patient and I discussed today the findings of her recent CT examination and how they correlate to her current symptoms. After that discussion, we chatted for a period of time in regards to the treatment options we have available to address her ongoing symptoms. Following was discussed with the patient today. We discussed physical therapy, stretching exercise, core strengthening and weight loss as a treatment option. We discussed medication management, adding to her current neuropathic treatment with either Cymbalta or possibly escalating the patient's amitriptyline for better analgesic effect by utilizing the norepinephrine reuptake pathway. We discussed lumbar epidural injections under fluoroscopic guidance for which the patient was referred to our clinic. We also discussed spinal cord stimulator therapy and ultimately surgical decompression. After reviewing the risks and benefits of all proposed treatment options, the patient chose to begin with a lumbar epidural injection under fluoroscopic [address] [address] PAIN MANAGEMENT CONSULTATION Name: ISA CONTE Room #: REG CLI Renetta#: [id number] Admission: 08/29/21 Attend Phys: Sen Bond DO Discharge: Date of : 43 Report #: [id number] guidance. 2. The patient was advised risks and benefits of a lumbar epidural injection. These risks include but are not necessarily limited to bleeding, bruising, infection, worsening pain, no relief of pain, and also risk of temporary or permanent muscle weakness, temporary or permanent nerve damage, possible paralysis, post-dural puncture headache and . The patient states understood and wished to proceed. 3. No medication changes made at today's visit. The patient will continue current medical therapy as prior prescribed. 4. The patient will return to our clinic in 1 month. At that time, review the efficacy of today's epidural injection and determine if next in the series of epidural injections would be recommended. 5. We wish to thank Dr. Darnell Caceres for the referral of this patient to our clinic. We will keep you apprised of response to treatment as we address lumbar radiculopathy. Again, we wish to thank you for the opportunity to see the patient in consultation. PROCEDURE NOTE DESCRIPTION OF PROCEDURE: L5-S1 right paramedian epidural steroid injection under fluoroscopic guidance. This is the first procedure of the first series that the patient is undergoing. After obtaining written consent, the patient was taken back to the fluoroscopy suite, placed in a prone position with pillow under the abdomen to decrease lumbar lordosis. The skin overlying the lumbosacral area was then prepped and draped in aseptic fashion. The L5-S1 vertebral interspace was then identified by AP fluoroscopy. The skin and subcutaneous tissue overlying the target site of injection was anesthetized with 3 mL 1% lidocaine. A 20 gauge 3-1/2 inch Tuohy needle was then advanced under fluoroscopic guidance towards the epidural space using a right paramedian approach. The epidural space was identified using loss of resistance to air technique. After negative aspiration for heme or cerebrospinal fluid, a total of 1 mL of Omnipaque was injected. A lumbar epidurogram was confirmed using both AP and lateral fluoroscopy. After negative aspiration for heme or cerebrospinal fluid, 5 mL of a solution containing 2 mL 40 mg per mL, 80 mg total triamcinolone along with 3 mL of lidocaine 1% was injected in increments. Contrast spread was noted in the posterior epidural space. The needle was then retracted approximately half way and needle tract flushed with 1 mL of 1% lidocaine. Needle was then removed. There were no apparent sensory or motor deficits in the lower extremity following the procedure. A sterile bandage was placed over the injection site. The heart rate, pulse, oximetry and blood pressure were continuously monitored after the procedure. There were no apparent complications. The patient [address] [address] PAIN MANAGEMENT CONSULTATION Name: ISA CONTE Room #: REG [facility] Renetta#: [id number] Admission: 08/29/21 Attend Phys: Sen Bond DO Discharge: Date of : 43 Report #: [id number] tolerated the procedure well and was carefully escorted to the recovery room in stable condition. There were no apparent complications. After meeting discharge criteria, the patient was then discharged home. By: [id number] Sen Bond DO /nt
[2021-08-29 10:44] VITALS: BP 137/69
--- NOTE | 2021-08-29 11:16 | NUR ---
Pain Clinic Assessment: 1. History of Osteoarthritis: LOW BACK HANDS JOINTS History of Rheumatoid Arthritis: DENIES 2. Height: 5 ft. 4 in. 162.6 cm. Weight: 200.0 lb. oz. 90.720 kg. Patient's BMI: 34.3 3. Vital Signs: BP: 137/69 Pulse: 73 Resp: 18 Temp: 02 Sat: 96 ECG Mon: 4. Pain Intensity: 4 TO 10 5. Fall Risk: Dizziness: N Needs help standing or walking: N Fallen in the last 3 months: N Fall risk comments: 6. Patient on Blood Thinner: None 7. History of Hypertension: Y 8. Opioid Therapy greater than 6 weeks: N Opiate Contract Signed: 9. Risk Assessment Tool Provided: LOW-0 10. Functional Assessment Tool: 43 11. Recreational Drug Use: Never Drug Type: Tobacco Use: Never Smoker Tobacco Type: Amount or Packs/day: How Many Years: Alcohol Use: No Frequency: Quant:
== END | disposition home or self-care (01) ==
LOC: PAIN 07:06
PROVIDERS: ATTEND Anesthesiology Pain Medicine
DX: M51.16 Intervertebral disc disorders with radiculopathy, lumbar region (principal); M48.061 Spinal stenosis, lumbar region without neurogenic claudication; G89.29 Other chronic pain; I10 Essential (primary) hypertension; E78.00 Pure hypercholesterolemia, unspecified; M79.7 Fibromyalgia; G62.9 Polyneuropathy, unspecified; G47.30 Sleep apnea, unspecified; M19.90 Unspecified osteoarthritis, unspecified site; Z98.890 Other specified postprocedural states; Z79.899 Other long term (current) drug therapy; Z90.49 Acquired absence of other specified parts of digestive tract

== ENCOUNTER → 2021-10-03 | Outpatient (CLI) | payer OTHER ==
[~2021-10-03] VITALS: Ht 162.6 cm; Wt 95.4 kg
[2021-10-03 10:19] VITALS: BP 130/66
--- NOTE | 2021-10-03 10:26 | NUR ---
Pain Clinic Assessment: 1. History of Osteoarthritis: LOW BACK HANDS JOINTS History of Rheumatoid Arthritis: DENIES 2. Height: 5 ft. 4 in. 162.6 cm. Weight: 210.4 lb. oz. 95.437 kg. Patient's BMI: 36.1 3. Vital Signs: BP: 130/66 Pulse: 80 Resp: 16 Temp: 02 Sat: 96 ECG Mon: 4. Pain Intensity: 7 5. Fall Risk: Dizziness: N Needs help standing or walking: N Fallen in the last 3 months: N Fall risk comments: 6. Patient on Blood Thinner: None 7. History of Hypertension: Y 8. Opioid Therapy greater than 6 weeks: N Opiate Contract Signed: 9. Risk Assessment Tool Provided: LOW-0 10. Functional Assessment Tool: 11. Recreational Drug Use: Never Drug Type: Tobacco Use: Never Smoker Tobacco Type: Amount or Packs/day: How Many Years: Alcohol Use: No Frequency: Quant:
--- NOTE | 2021-10-04 08:51 | HPC ---
[facility] [place] [address] PAIN MANAGEMENT CONSULTATION Name: ISA CONTE Room #: REG MISTY Lopez.#: [id number] Admission: 10/03/21 Attend Phys: Sen Bond DO Discharge: Date of : 43 Report #: [id number] THIS REPORT FOR: cc: Tony Cox Steven F. DO Johnson, James E. DO ~ cc: Darnell Caceres MD DATE OF SERVICE: 10/03/2021 REFERRING PHYSICIAN: Dr. Darnell Caceres. CHIEF COMPLAINT: Low back pain, bilateral lower extremity pain with paresthesias, left greater than right. HISTORY OF PRESENT ILLNESS: As you know, the patient is a pleasant 75-year-old female with longstanding history of intermittent axial back pain began years ago. She had an acute exacerbation of symptoms that occurred in 04/2020. No inciting injury or trauma. Pain began to radiate from the back down the legs, left greater than right. The patient sought evaluation through her neurosurgeon, Dr. Darnell Caceres who recommended a trial of epidural injections. The patient was subsequently referred on to our clinic. We saw the patient in consultation 08/29/2021 where she underwent a lumbar epidural injection under fluoroscopic guidance. The patient reports that injection she received 99% improvement in overall pain, lasting almost an entire month with a slow and progressive return of symptoms back to a level about 7/10. She returns today in followup visit stating her pain is intermittent, stabbing, shooting, numbness and tingling when describing symptoms that has recurred without inciting injury or trauma. She is requesting next in the series of epidural injections. She has had no changes in her medication management since our last visit that would preclude her from undergoing an injection today. ALLERGIES: No known drug allergies. CURRENT MEDICATIONS: See chart. SOCIAL HISTORY: Unchanged. Retired, retired about 10 years ago. She is not a smoker. She denies IV or illicit drug use. Denies any chronic alcohol use. She is present with her in room today. PQRS: The patient has known arthritic changes of lumbar spine, bilateral hands, bilateral hips and knees. No rheumatoid arthritis. She is placing pain intensity today at a level of 7/10. She is not a fall risk, has not had a fall in last 3 months. She is treated for hypertension, but not on any blood thinners. She is on no opioids, has a low opioid addiction potential. Pain impact is 43/70, severe interference of daily activities secondary to pain. [address] [address] PAIN MANAGEMENT CONSULTATION Name: ISA CONTE Room #: REG [facility] Jessica.#: [id number] Admission: 10/03/21 Attend Phys: Sen Bond DO Discharge: Date of : 43 Report #: [id number] PHYSICAL EXAMINATION: VITAL SIGNS: Blood pressure 130/66, pulse 80, respiratory rate 16 and unlabored. The patient is 96% on room air. Height 5 feet 4 inches tall, weight 210.4 pounds, BMI calculated 36.1. GENERAL: Well-developed, well-nourished, well-hydrated, exogenously obese 75-year-old female appearing stated age, pain is rated today 7/10. HEENT: Normocephalic, atraumatic. Pupils are round. She is wearing a mask in compliance with [facility]-19 regulations and hospital policies. EXTREMITIES: Show no clubbing, no cyanosis, no edema. MUSCULOSKELETAL: Lower extremity strength equal and symmetrical, 5/5. Seated straight leg raising negative. Supine straight leg raising positive. Fabere's test negative. Modified Gaenslen's positive for axial low back pain. ASSESSMENT: 1. Symptomatic lumbar radiculopathy. 2. Displacement of lumbar intervertebral disk with radiculopathy. 3. Neural foraminal stenosis of lumbar spine. 4. Lumbar degeneration. 5. Chronic intractable pain. PLAN: 1. The patient returns today in followup visit to undergo lumbar epidural injection under fluoroscopic guidance. The patient noted excellent benefit with the initial epidural injection, but unfortunately her symptoms have reoccurred. No inciting injury or trauma. She has been advised risks and benefits of the second in the series of epidural injection, states understood and wished to proceed. 2. No medication changes made at today's visit. The patient will continue current medication management as previously prescribed. 3. Plan to see the patient back in followup visit for a possible next in the series of lumbar epidural injections. I am hopeful the patient will once again see good and prolonged benefit with lumbar epidural injection provided today. PROCEDURE NOTE: DESCRIPTION OF PROCEDURE: L5-S1 right paramedian epidural steroid injection under fluoroscopic guidance. This is the second procedure of the first series that the patient is undergoing. After obtaining written consent, the patient was taken back to the fluoroscopy suite, placed in a prone position with pillow under the abdomen to decrease lumbar lordosis. The skin overlying the lumbosacral area was then prepped and draped in aseptic fashion. The L5-S1 vertebral interspace was then identified by AP fluoroscopy. The skin and subcutaneous tissue overlying the target site of injection was anesthetized with 3 mL 1% lidocaine. [address] [address] PAIN MANAGEMENT CONSULTATION Name: ISA CONTE Room #: REG [facility]#: [id number] Admission: 10/03/21 Attend Phys: Sen Bond DO Discharge: Date of : 43 Report #: [id number] A 20-gauge 3-1/2 inch Tuohy needle was then advanced under fluoroscopic guidance towards the epidural space using a right paramedian approach. The epidural space was identified using loss of resistance to air technique. After negative aspiration for heme or cerebrospinal fluid, a total of 1 mL of Omnipaque was injected. A lumbar epidurogram was confirmed using both AP and lateral fluoroscopy. After negative aspiration for heme or cerebrospinal fluid, 2 mL 40 mg per mL 80 mg total triamcinolone along with 3 mL of lidocaine 1% was injected in increments. Contrast spread was noted posterior epidural space. The needle was then retracted approximately half way and needle tract flushed with 1 mL of 1% lidocaine. Needle was then removed. There were no apparent sensory or motor deficits in the lower extremity following the procedure. A sterile bandage was placed over the injection site. The heart rate, pulse, oximetry and blood pressure were continuously monitored after the procedure. There were no apparent complications. The patient tolerated the procedure well and was carefully escorted to the recovery room in stable condition. There were no apparent complications. After meeting discharge criteria, the patient was then discharged home. <ELECTRONICALLY SIGNED> By: Sen Bond DO 10/04/21 0851 [id number] Sen Bond DO /seth
== END | disposition home or self-care (01) ==
LOC: PAIN 09:48
PROVIDERS: ATTEND Anesthesiology Pain Medicine
DX: M51.16 Intervertebral disc disorders with radiculopathy, lumbar region (principal); M48.061 Spinal stenosis, lumbar region without neurogenic claudication; G89.29 Other chronic pain; I10 Essential (primary) hypertension; M19.90 Unspecified osteoarthritis, unspecified site; Z98.890 Other specified postprocedural states; Z79.899 Other long term (current) drug therapy

== ENCOUNTER → 2021-12-29 | Outpatient (CLI) | payer OTHER | LOC: CAT 09:01 | PROVIDERS: ATTEND Specialist | DX: M47.816 Spondylosis without myelopathy or radiculopathy, lumbar region (principal); M43.16 Spondylolisthesis, lumbar region; M48.061 Spinal stenosis, lumbar region without neurogenic claudication ==